=== PATIENT | male | born 1965 | race Caucasian/White ===

== ENCOUNTER 2022-04-07 10:02 | Emergency (ER) | payer OTHER, SELFPAY ==
[2022-04-07] VITALS (11 sets, daily range): BP systolic 145–168; BP diastolic 91–109; PULSE 56–103; RESP 14–27; TEMP 37.1; O2SAT 96–99; BMI 23.7
--- NOTE | 2022-04-07 10:18 | DI.RAD.S_ITS ---
PROCEDURE: XR CHEST 1V INDICATIONS: chest pain TECHNIQUE: One view of the chest was acquired. COMPARISON: None. FINDINGS: Surgical changes and devices: None. Lungs and pleura: Lungs are clear. No pleural effusions or pneumothorax. Mediastinum: Mediastinal contours appear normal. Heart size is normal. Bones and chest wall: No suspicious bony lesions. Overlying soft tissues appear unremarkable. IMPRESSION: No acute cardiopulmonary disease. Dictated by: Alycia Riley M.D. on 04/07/2022 at 10:36 Approved by: Alycia Riley M.D. on 04/07/2022 at 10:37
--- NOTE | 2022-04-07 10:35 | ED.CHESTPAIN ---
HPI - Chest Pain General Chief Complaint: Chest Pain Stated Complaint: Poss cardiac episode yesterday- ref by Time Seen by Provider: 04/07/22 10:26 Source: patient Mode of arrival: Ambulatory Limitations: no limitations History of Present Illness HPI narrative: 56-year-old male who yesterday afternoon had approximately 2-1/2 hour episode of left-sided chest discomfort with some shortness of breath. He states that it did not radiate anywhere. It started in resolved on its own. Did have shortness of breath along with it but no other symptoms. He currently does not have any symptoms. He states that he went to his primary doctor today in order to get an EKG and they sent him to the emergency department. Does have a history of prostate cancer. Is currently being treated with Lupron and immunotherapy. Currently is asymptomatic. Review of Systems Review of Systems ROS Unobtainable: All systems reviewed & are unremarkable except as noted in HPI and below Patient History Medical History Prostate cancer Social History lives independently: Yes Exam Initial Vital Signs Initial Vital Signs: Vital Signs Pulse Rate 101 H 04/07/22 10:09 Blood Pressure 168/109 H 04/07/22 10:09 Pulse Oximetry 99 04/07/22 10:09 Const General: cooperative and comfortable HENMT Head: normal to inspection and normocephalic Resp Effort & Inspection: normal respiratory effort Auscultation: clear to auscultation bilaterally Cardio Rate: regular rate Rhythm: regular rhythm GI Inspection: normal to inspection Skin General: no rashes or lesions noted Neuro General: patient alert, patient awake and moves all extremities Speech: speech normal Gait: normal gait Extrem General: normal to inspection and capillary refill normal Psych Appearance: grossly normal and well kempt Scores HEART Score Heart Score history: Slightly Suspicious Heart Score EKG: Normal Heart Score Age: 45-64 years old Heart Score risk factors: 1-2 risk factors Heart Score troponin: < or = to normal limit Heart Score Total: 2 Course Orders Ordered: ED Orders 04/07/22 10:17 EKG-12 Lead Stat 04/07/22 10:18 XR chest 1V Stat 04/07/22 10:30 Complete Blood Count AUTO DIFF Stat Comprehensive Metabolic Panel Stat Lipase Stat Magnesium Stat Partial Thromboplastin Time Stat Prothrombin Time INR Stat Troponin & CK Cardiac Panel Stat 04/07/22 12:20 Troponin I Stat Vital Signs Vital signs: Vital Signs - 8 hr 04/07/22 10:13 04/07/22 10:09 04/07/22 10:09 Temperature 98.7 F Pulse Rate 103 H 101 H Respiratory Rate 16 Blood Pressure 168/109 H 168/109 H Pulse Oximetry 97 99 Oxygen Delivery Method Room Air 04/07/22 10:30 04/07/22 11:00 04/07/22 11:30 Temperature Pulse Rate 84 77 74 Respiratory Rate 27 H 22 20 Blood Pressure Pulse Oximetry 98 97 97 Oxygen Delivery Method 04/07/22 12:00 04/07/22 12:04 04/07/22 12:04 Temperature Pulse Rate 56 L 71 Respiratory Rate 14 Blood Pressure 145/92 H 145/92 H Pulse Oximetry 96 99 Oxygen Delivery Method 04/07/22 12:30 04/07/22 12:30 04/07/22 13:00 Temperature Pulse Rate 59 L Respiratory Rate 14 Blood Pressure 154/92 H 150/95 H Pulse Oximetry 98 Oxygen Delivery Method Room Air 04/07/22 13:00 Temperature Pulse Rate 67 Respiratory Rate 15 Blood Pressure Pulse Oximetry 99 Oxygen Delivery Method MDM - Chest Pain Lab Data Result diagrams: 04/07/22 10:30 04/07/22 10:30 Labs: Lab Results 04/07/22 04/07/22 04/07/22 Range/Units 10:30 10:30 10:30 WBC 9.8 (4.5-11.0) X10^3/uL RBC 4.64 (4.5-5.9) X10^6/uL Hgb 14.7 (13.5-17.5) g/dL Hct 41.2 (41-53) % MCV 88.8 (80-100) fL MCH 31.6 (26-34) PG MCHC 35.7 (30-36) % RDW 13.0 (11.6-14.8) % Plt Count 252 (150-400) X10^3/uL Neut % (Auto) 70.0 (50-75) % Lymph % (Auto) 21.1 L (25-40) % [place] % (Auto) 7.3 (3-14) % Eos % (Auto) 0.6 L (2-4) % Baso % (Auto) 1.0 (0-2) % Neut # (Auto) 6800 (7901-7905) /uL Lymph # (Auto) 2100 (2477-6974) /uL [place] # (Auto) 700 (0-900) /uL Eos # (Auto) 100 (0-450) /uL Baso # (Auto) 100 (0-100) /uL PT 11.3 (10.1-12.7) SECONDS INR 1.0 (0.9-1.3) APTT 32 (26-36) SECONDS Sodium 141 (137-145) mmol/L Potassium 4.0 (3.4-5.1) mmol/L Chloride 105 (98-107) mmol/L Carbon Dioxide 24 (22-32) mmol/L BUN 22 H (9-20) mg/dL Creatinine 0.81 (0.66-1.25) mg/dL Estimated GFR > 60 (>60) mL/min BUN/Creatinine Ratio 27.2 H (6-22) Glucose 118 H (70-100) mg/dL Calcium 9.2 (8.4-10.2) mg/dL Magnesium 1.9 (1.6-2.3) mg/dL Total Bilirubin 0.7 (0.2-1.3) mg/dL AST 71 H (17-59) IU/L ALT 139 H (<50) IU/L Alkaline Phosphatase 79 (38-126) U/L Total Creatine Kinase 132 (55-170) U/L CK-MB (CK-2) 1.09 (<2.37) ng/mL CK-MB (CK-2) Rel Index 0.8 L (1.5-5.0) % Troponin I < 0.012 (0.01-0.034) ng/mL Total Protein 7.6 (6.3-8.2) g/dL Albumin 4.5 (3.5-5.0) g/dL Globulin 3.1 (1.7-4.1) g/dL Albumin/Globulin Ratio 1.5 (1.0-2.8) Lipase 432 H (23-300) U/L 04/07/22 Range/Units 12:20 WBC (4.5-11.0) X10^3/uL RBC (4.5-5.9) X10^6/uL Hgb (13.5-17.5) g/dL Hct (41-53) % MCV (80-100) fL MCH (26-34) PG MCHC (30-36) % RDW (11.6-14.8) % Plt Count (150-400) X10^3/uL Neut % (Auto) (50-75) % Lymph % (Auto) (25-40) % [place] % (Auto) (3-14) % Eos % (Auto) (2-4) % Baso % (Auto) (0-2) % Neut # (Auto) (4893-6765) /uL Lymph # (Auto) (9199-9950) /uL [place] # (Auto) (0-900) /uL Eos # (Auto) (0-450) /uL Baso # (Auto) (0-100) /uL PT (10.1-12.7) SECONDS INR (0.9-1.3) APTT (26-36) SECONDS Sodium (137-145) mmol/L Potassium (3.4-5.1) mmol/L Chloride (98-107) mmol/L Carbon Dioxide (22-32) mmol/L BUN (9-20) mg/dL Creatinine (0.66-1.25) mg/dL Estimated GFR (>60) mL/min BUN/Creatinine Ratio (6-22) Glucose (70-100) mg/dL Calcium (8.4-10.2) mg/dL Magnesium (1.6-2.3) mg/dL Total Bilirubin (0.2-1.3) mg/dL AST (17-59) IU/L ALT (<50) IU/L Alkaline Phosphatase (38-126) U/L Total Creatine Kinase (55-170) U/L CK-MB (CK-2) (<2.37) ng/mL CK-MB (CK-2) Rel Index (1.5-5.0) % Troponin I < 0.012 (0.01-0.034) ng/mL Total Protein (6.3-8.2) g/dL Albumin (3.5-5.0) g/dL Globulin (1.7-4.1) g/dL Albumin/Globulin Ratio (1.0-2.8) Lipase (23-300) U/L Imaging Data Chest x-ray: Radiologist's Impression: [address] [address] XRay Report Signed Patient: Pierre Tamayo MR#: [id number] : 1965 Acct:[id number] Age/Sex: 56 / M Date of Service: 04/07/22 Loc: ED Accession Number: [id number] ?? Procedure: XR chest 1V Ordering Provider: Nader Hernadez D.O. PROCEDURE:? XR CHEST 1V ? INDICATIONS:? chest pain ? TECHNIQUE:? One view of the chest was acquired.? ? COMPARISON:? None. ? FINDINGS:? ? Surgical changes and devices:? None.? ? Lungs and pleura:? Lungs are clear.? No pleural effusions or pneumothorax.? ? Mediastinum:? Mediastinal contours appear normal.? Heart size is normal.? ? Bones and chest wall:? No suspicious bony lesions.? Overlying soft tissues appear unremarkable.? ? IMPRESSION:? No acute cardiopulmonary disease. ? ? Dictated by: Alycia Riley M.D. on 04/07/2022 at 10:36 ? ? Approved by: Alycia Riley M.D. on 04/07/2022 at 10:37?? ECG Data Attestation: I personally reviewed and interpreted this ECG as follows: Interpretation: Sinus rhythm Ventricular rate 81 Normal axis Normal QRS Normal QTC No ST T wave changes MDM Narrative Medical decision making narrative: Low risk heart score, troponins negative x2. Patient is asymptomatic. Unremarkable EKG. Had a discussion with him regarding his symptoms. He will contact his primary doctor to discuss further risk stratification to include a stress test. He was given return precautions. He expressed understanding and agreement. Discharge Plan Departure Patient Disposition: Home Clinical Impression: Atypical chest pain Instructions: DI for Atypical Chest Pain Activity Restrictions/Additional Instructions: Continue to take all of your medications as directed. Contact your primary doctor for follow-up to discuss the indications for further testing such as a stress test. Return to the emergency department for any new or worsening symptoms.
[2022-04-07 10:38] LABS: Add Manual Diff / Slide Review NO; Basophils Absolute Auto 100 /uL (0-100); Eosinophils Absolute Auto 100 /uL (0-450); Eosinophils Percent Auto 0.6 % (2-4); Hematocrit 41.2 % (41-53); Hemoglobin 14.7 g/dL (13.5-17.5); Lymphocytes Absolute Auto 2100 /uL (1100-4500); Lymphocytes Percent Auto 21.1 % (25-40); Mean Corpuscular HGB Conc 35.7 % (30-36); Mean Corpuscular Hemoglobin 31.6 PG (26-34); Mean Corpuscular Volume 88.8 fL (80-100); Monocytes Absolute Auto 700 /uL (0-900); Monocytes Percent Auto 7.3 % (3-14); Neutrophils Absolute Auto 6800 /uL (1500-7000); Platelet Count 252 X10^3/uL (150-400); Red Blood Cell Count 4.64 X10^6/uL (4.5-5.9); White Blood Cell Count 9.8 X10^3/uL (4.5-11.0)
[2022-04-07 10:52] LABS: Prothrombin Time 11.3 SECONDS (10.1-12.7)
[2022-04-07 10:54] LABS: PTT Partial Thromboplastin Tim 32 SECONDS (26-36)
[2022-04-07 10:56] LABS: Alanine Aminotransferase 139 IU/L (<50); Albumin 4.5 g/dL (3.5-5.0); Albumin Globulin Ratio 1.5 (1.0-2.8); Alkaline Phosphatase 79 U/L (38-126); Aspartate Aminotransferase 71 IU/L (17-59); BUN Creatinine Ratio 27.2 (6-22); Bilirubin Total 0.7 mg/dL (0.2-1.3); Blood Urea Nitrogen 22 mg/dL (9-20); Calcium 9.2 mg/dL (8.4-10.2); Carbon Dioxide 24 mmol/L (22-32); Chloride 105 mmol/L (98-107); Creatine Kinase 132 U/L (55-170); Estimated Glomerular Filt Rate > 60 mL/min (>60); Globulin 3.1 g/dL (1.7-4.1); Glucose 118 mg/dL (70-100); HEMOLYSIS < 15 (0-50); Lipase 432 U/L (23-300); Magnesium 1.9 mg/dL (1.6-2.3); Sodium 141 mmol/L (137-145); Total Protein 7.6 g/dL (6.3-8.2)
[2022-04-07 11:07] LABS: Troponin I < 0.012 ng/mL (0.01-0.034)
[2022-04-07 11:11] LABS: CKMB % Relative Index 0.8 % (1.5-5.0); Creatine Kinase MB 1.09 ng/mL (<2.37)
[2022-04-07 12:54] LABS: Troponin I < 0.012 ng/mL (0.01-0.034)
== END 2022-04-07 13:44 | disposition home or self-care (01) ==
PROVIDERS: Emergency Provider Emergency Medicine; Referring Provider Internal Medicine
DX: R07.89 Other chest pain (principal); R06.02 Shortness of breath
CPT/HCPCS: 36415; 71045; 80053; 82550; 82553; 83690; 83735; 84484; 85025; 85610; 85730; 93005; 99283; 99284

== ENCOUNTER → 2022-06-14 07:09 | Outpatient (CLI) | payer OTHER, SELFPAY ==
--- NOTE | 2022-06-14 | DI.MRI.S_ITS ---
PROCEDURE: MR ABDOMEN WO/W CON INDICATIONS: Hepatomegaly, not elsewhere classified TECHNIQUE: Coronal HASTE, axial 2D FLASH in- and [id number]; axial breath-hold T2 FSE. Dynamic axial VIBE during the administration of contrast; post-contrast coronal VIBE or 2D FLASH with fat saturation from the hepatic dome to the iliac crests. Optional diffusion weighted imaging and ADC may be performed. COMPARISON: None. FINDINGS: Image quality: Excellent. Lung bases: No basal pleural effusions. Heart size is normal. Solid organs: Right lobe of the liver is elongated measuring 21.9 cm in length. The liver margin is smooth. The liver is normal in signal. There is an ovoid 2.7 cm T2 hyperintense mass in the caudal aspect of segment six which demonstrates nodular peripheral discontinuous enhancement with delayed wash-in. The liver is otherwise normal. Gallbladder is normal without stones. Biliary system is non dilated. Pancreas is normal in morphology. Spleen is normal in size and enhancement. No adrenal nodules. Both kidneys demonstrate normal size and enhancement, without hydronephrosis. A few small cysts are present in each kidney. No enhancing mass. Nodes and vessels: No retroperitoneal or mesenteric adenopathy by size criteria. Aorta and inferior vena cava are normal in size. Bowel and peritoneum: Unenhanced bowel loops are normal in caliber. No free fluid. Bones and soft tissues: No ventral hernias. Bone marrow is normal in overall signal. IMPRESSION: 1. Elongated right hepatic lobe is consistent with Abel's lobe morphology, normal variant. The remainder of the liver is normal. 2. 2.7 cm hepatic hemangioma in the right hepatic lobe. 3. A few incidental benign renal cysts. Dictated by: Ifrah Ortiz M.D. on 06/14/2022 at 10:59 Approved by: Ifrah Ortiz M.D. on 06/14/2022 at 11:10
== END ==
PROVIDERS: PCP Internal Medicine; Referring Provider Nurse Practitioner Family; Visit Provider Nurse Practitioner Family
DX: D18.09 Hemangioma of other sites (principal); R16.0 Hepatomegaly, not elsewhere classified; N28.1 Cyst of kidney, acquired
CPT/HCPCS: 74183; A9579

== ENCOUNTER → 2025-07-06 06:33 | Outpatient (CLI) | payer OTHER, SELFPAY ==
--- NOTE | 2025-07-06 06:38 | DI.RAD.S_ITS ---
PROCEDURE: XR THORACIC SPINE 2V INDICATIONS: PAIN IN THORACIC SPINE TECHNIQUE: 2 views of the thoracic spine were acquired. COMPARISON: None. FINDINGS: Bones: Mild multilevel disc degeneration, anterior endplate osteophytes, and bony sclerosis. Minimal S curvature. No fractures or dislocations. No suspicious bony lesions. 12 pairs of ribs are noted, and appear intact where visualized. Soft tissues: No paravertebral stripe thickening. IMPRESSION: Mild thoracic spondylosis predominantly affecting lower thoracic spine. Dictated by: Cornelia Manuel [facility] Interpreted: Nikolai Cote MD on 07/06/2025 at 8:14 Transcribed by: CONRAD on 07/06/2025 at 8:15 Approved by: Nikolai Cote M.D. on 07/06/2025 at 13:10
== END ==
PROVIDERS: PCP Internal Medicine; Referring Provider Internal Medicine; Visit Provider Internal Medicine
DX: M47.814 Spondylosis without myelopathy or radiculopathy, thoracic region (principal); M54.6 Pain in thoracic spine
CPT/HCPCS: 72070